=== PATIENT | female | born 1995 | race Caucasian/White ===

== ENCOUNTER → 2016-11-28 | Outpatient (CLI) | payer MEDICAID ==
[~2016-11-28] MED LIST: ACET500C PO; IBUP600T26 PO
== END ==
LOC: M OUTALCOH 08:01
PROVIDERS: ATTEND Psychiatry & Neurology Psychiatry
DX: Z13.9 Encounter for screening, unspecified (principal); Z03.89 Encounter for observation for other suspected diseases and conditions ruled out

== ENCOUNTER → 2018-02-04 | Outpatient (REF) | payer OTHER, MEDICAID ==
[2018-02-04 17:26] LABS: ALBUMIN 3.7 GM/DL (3.2-5.2); ALBUMIN/GLOBULIN RATIO 1.12 (1.00-1.93); ALKALINE PHOSPHATASE 110 U/L (45-117); ALT/SGPT 43 U/L (12-78); ANION GAP 7 MEQ/L (8-16); AST/SGOT 22 U/L (7-37); BILIRUBIN,TOTAL 0.3 MG/DL (0.2-1.0); BLOOD UREA NITROGEN 8 MG/DL (7-18); CALCIUM LEVEL 8.8 MG/DL (8.5-10.1); CARBON DIOXIDE LEVEL 28 MEQ/L (21-32); CHLORIDE LEVEL 109 MEQ/L (98-107); CREATININE FOR GFR 0.66 MG/DL (0.55-1.30); GLOMERULAR FILTRATION RATE > 60.0 (>60); GLUCOSE, FASTING 108 MG/DL (70-100); LIPASE 126 U/L (73-393); POTASSIUM SERUM 4.1 MEQ/L (3.5-5.1); SODIUM LEVEL 144 MEQ/L (136-145)
[2018-02-04 17:52] LABS: BASO # 0.1 10^3/uL (0.0-0.2); BASO % 0.6 % (0.0-1.0); EOS # 0.2 10^3/uL (0.0-0.50); EOS % 1.7 % (0.0-3.0); HEMATOCRIT 40.5 % (36.0-47.0); HEMOGLOBIN 13.6 g/dl (12.0-15.5); IMMATURE GRANULOCYTE % 0.6 % (0-3.0); LYMPH # 1.8 10^3/uL (1.5-6.5); MEAN CORPUSCULAR HEMOGLOBIN 28.2 pg (27.0-33.0); MEAN CORPUSCULAR HGB CONC 33.6 g/dl (32.0-36.5); MONO # 0.7 10^3/uL (0.0-0.8); MONO % 7.8 % (0.0-5.0); NEUTROPHILS # 5.9 10^3/uL (1.8-7.7); NEUTROPHILS % 68.3 % (36.0-66.0); PLATELET COUNT, AUTOMATED 287 10^3/uL (150-450); RED BLOOD COUNT 4.82 10^6/uL (4.00-5.40); RED CELL DISTRIBUTION WIDTH 12.8 % (11.5-14.5); WHITE BLOOD COUNT 8.6 10^3/uL (4.0-10.0)
== END ==
LOC: M LAB REF 16:28
DX: K80.50 Calculus of bile duct without cholangitis or cholecystitis without obstruction (principal)
CPT/HCPCS: 83690

== ENCOUNTER → 2018-02-15 | Outpatient (CLI) | payer OTHER, MEDICAID | LOC: M RAD 06:21 | DX: K80.50 Calculus of bile duct without cholangitis or cholecystitis without obstruction (principal) | CPT/HCPCS: 76705 ==

== ENCOUNTER 2018-03-17 20:26 | Emergency (ER) | payer OTHER, MEDICAID ==
[2018-03-17] MEDS: CEPHALEXIN 500 MG CAP PO (21:49)
== END 2018-03-17 21:51 | disposition home or self-care (01) ==
LOC: M ED 20:26
DX: J02.0 Streptococcal pharyngitis (principal); F41.9 Anxiety disorder, unspecified; F42.9 Obsessive-compulsive disorder, unspecified; Z79.899 Other long term (current) drug therapy
CPT/HCPCS: 87880

== ENCOUNTER 2018-10-24 08:08 | Emergency (ER) | payer MEDICAID, OTHER, SELFPAY ==
[~2018-10-24] VITALS: Ht 154.9 cm; Wt 86.4 kg
[~2018-10-24 08:08] MED LIST changes: +IBUP-1022 PO; -IBUP600T26 PO; +KEFL500C17 PO; +LIDVISCBTL; +PARO40TA2
[2018-10-24] MEDS ORDERED: NS 1,000 ML IV ONE (08:45)
[2018-10-24] MEDS ORDERED: KETOROLAC 30 MG/ML VIAL (J1885) IV ONE (08:45)
[2018-10-24 09:01] LABS: BASO % 0.3 % (0.0-1.0); EOS % 0.3 % (0.0-3.0); HEMATOCRIT 44.6 % (36.0-47.0); HEMOGLOBIN 14.9 g/dl (12.0-15.5); LYMPH # 0.7 10^3/uL (1.5-6.5); LYMPH % 5.7 % (24.0-44.0); MEAN CORPUSCULAR HEMOGLOBIN 28.4 pg (27.0-33.0); MEAN CORPUSCULAR HGB CONC 33.4 g/dl (32.0-36.5); MONO % 8.2 % (0.0-5.0); NEUTROPHILS # 10.6 10^3/uL (1.8-7.7); NEUTROPHILS % 85.1 % (36.0-66.0); PLATELET COUNT, AUTOMATED 266 10^3/uL (150-450); RED BLOOD COUNT 5.25 10^6/uL (4.00-5.40); WHITE BLOOD COUNT 12.4 10^3/uL (4.0-10.0)
[2018-10-24 09:22] LABS: HCG, SERUM QUALITATIVE NEGATIVE (NEGATIVE)
[2018-10-24 09:33] LABS: ALT/SGPT 25 U/L (12-78); BILIRUBIN,DIRECT 0.2 MG/DL (0.0-0.2); BILIRUBIN,TOTAL 0.6 MG/DL (0.2-1.0); BLOOD UREA NITROGEN 8 MG/DL (7-18); CALCIUM LEVEL 8.8 MG/DL (8.5-10.1); CARBON DIOXIDE LEVEL 27 MEQ/L (21-32); CHLORIDE LEVEL 106 MEQ/L (98-107); CK-MB VALUE MASS < 1.0 NG/ML (<3.6); CPK CREATINE PHOSPHOKINASE 71 U/L (26-192); CREATININE FOR GFR 0.75 MG/DL (0.55-1.30); GLOMERULAR FILTRATION RATE > 60.0 (>60); GLUCOSE, FASTING 107 MG/DL (70-100); LIPASE 73 U/L (73-393); MB/CK RELATIVE INDEX 1.41 (< OR =4); POTASSIUM SERUM 3.7 MEQ/L (3.5-5.1); SODIUM LEVEL 140 MEQ/L (136-145); THYROID STIMULATING HORMONE 0.668 uIU/ML (0.358-3.740); TOTAL PROTEIN 7.6 GM/DL (6.4-8.2); TROPONIN I < 0.02 NG/ML (< 0.10)
[2018-10-24] MEDS ORDERED: TESS100C PO (09:49)
[2018-10-24] MEDS ORDERED: MUCI600T37 PO (09:49)
--- NOTE | 2018-10-24 09:49 | REP ---
Clinical: Acute chest pain . Comparison: None . Technique: PA and lateral. Findings: The mediastinum and cardiac silhouette are normal. The lung james are clear and without acute consolidation, effusion, or pneumothorax. The skeletal structures are intact and normal. Impression: 1. No acute cardiopulmonary process. Electronically Signed by Dawit Ulloa MD 10/24/2018 09:40 A
[2018-10-24 10:00] VITALS: BP 116/55
--- NOTE | 2018-10-24 20:04 | ECGEPIP ---
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
== END 2018-10-24 10:03 | disposition home or self-care (01) ==
LOC: M ED 08:08
DX: J20.8 Acute bronchitis due to other specified organisms (principal); R00.0 Tachycardia, unspecified; F42.9 Obsessive-compulsive disorder, unspecified
CPT/HCPCS: 71046; 80048; 80076; 82550; 82553; 83690; 84443; 84484; 84703; 85025; 85379; 93005; 96374; 99284; J1885

== ENCOUNTER 2018-12-18 04:09 | Emergency (ER) | payer SELFPAY ==
[~2018-12-18] VITALS: Ht 154.9 cm; Wt 77.3 kg
[~2018-12-18 04:09] MED LIST changes: +MUCI600T37 PO; +TESS100C PO
[2018-12-18 04:10] VITALS: BP 131/78
== END 2018-12-18 05:05 | disposition left against medical advice (07) ==
LOC: M ED 04:09
DX: Z53.21 Procedure and treatment not carried out due to patient leaving prior to being seen by health care provider (principal)

== ENCOUNTER → 2019-03-21 | Outpatient (REF) | payer SELFPAY | LOC: M LAB REF 18:39 | PROVIDERS: ATTEND Nurse Practitioner Adult Health | DX: J02.9 Acute pharyngitis, unspecified (principal) ==

== ENCOUNTER 2020-02-20 16:37 | Emergency (ER) | payer MEDICAID, SELFPAY ==
[~2020-02-20] VITALS: Ht 154.9 cm; Wt 92.9 kg
[2020-02-20 16:37] VITALS: BP 132/70
--- NOTE | 2020-02-20 17:07 | REP ---
Clinical: Trauma. Technique: AP, lateral, bilateral oblique views left foot . Findings: The osseous structures and joint spaces are intact and normal. There is no evidence for acute fracture or dislocation. Surrounding soft tissues are unremarkable. No subcutaneous emphysema or radiodense foreign body. Impression: Normal left foot series . No acute fracture or dislocation. Electronically Signed by Dawit Ulloa MD 02/20/2020 04:58 P
== END 2020-02-20 17:30 | disposition home or self-care (01) ==
LOC: M ED 16:37
DX: S90.32XA Contusion of left foot, initial encounter (principal); W18.30XA Fall on same level, unspecified, initial encounter; Y92.9 Unspecified place or not applicable

== ENCOUNTER → 2020-07-18 | Outpatient (REF) | payer OTHER, MEDICAID | LOC: M LAB REF 21:22 | PROVIDERS: ATTEND Physician Assistant | DX: N90.89 Other specified noninflammatory disorders of vulva and perineum (principal) ==